=== PATIENT | male | born 1995 ===

== ENCOUNTER 2017-10-17 16:24 | Inpatient (IN) | payer MEDICAID ==
[2017-10-17 16:44] VITALS: BMI 59.7
--- NOTE | 2017-10-17 17:17 | ED PDOC ---
Arrival/HPI - General Chief Complaint: ENT Problem Time Seen by Provider: 10/17/17 17:14 Historian: Patient - History of Present Illness Narrative History of Present Illness (Text): 10/17/17 17:14 This 22 yo male presents to this ED c/o sore throat x 3 days. Patient stated he has difficulty swallowing due to pain. Patient stated his right pharynx is very swelling, and it is touching the other side of pharynx. Patient denies similar symptom in the past. Patient denies fever, cough, sob, skin rash, sick contact, dizziness, or weakness. Time/Duration: Other (see hpi) Context: Home Past Medical History - Provider Review Nursing Documentation Reviewed: Yes - Infectious Disease Hx of Infectious Diseases: None - Psychiatric Hx Substance Use: No Family/Social History - Physician Review Nursing Documentation Reviewed: Yes Family/Social History: Other (noncontributory) Smoking Status: Never Smoked Hx Alcohol Use: No Hx Substance Use: No Allergies/Home Meds Allergies/Adverse Reactions: Allergies No Known Allergies Allergy (Verified 10/17/17 16:43) Review of Systems - Review of Systems Constitutional: Normal. absent: Fatigue, Weight Change, Fevers Eyes: Normal ENT: Sore Throat Respiratory: Normal Cardiovascular: Normal Gastrointestinal: Normal Genitourinary Male: Normal Musculoskeletal: Normal Skin: Normal Neurological: Normal Endocrine: Normal Hemo/Lymphatic: Normal Psychiatric: Normal Physical Exam Vital Signs Temp Pulse Resp BP Pulse Ox 10/17/17 23:19 84 18 135/74 98 10/17/17 17:06 98.0 F 75 18 132/70 100 Temperature: Afebrile Blood Pressure: Normal Pulse: Regular Respiratory Rate: Normal Appearance: Positive for: Well-Appearing, Non-Toxic, Comfortable Pain Distress: None Mental Status: Positive for: Alert and Oriented X 3 - Systems Exam Head: Present: Atraumatic, Normocephalic Pupils: Present: PERRL Extroacular Muscles: Present: EOMI Conjunctiva: Present: Normal Mouth: Present: Moist Mucous Membranes Pharnyx: Present: ERYTHEMA, TONSILS ENLARGED, Peritonsilar Swelling (right peritonsilar swelling. Right pharynx is pushing uvula. Left pharynx is normal. No exudates). No: EXUDATE Neck: Present: Normal Range of Motion Respiratory/Chest: Present: Clear to Auscultation, Good Air Exchange. No: Respiratory Distress, Accessory Muscle Use Cardiovascular: Present: Regular Rate and Rhythm, Normal S1, S2. No: Murmurs Upper Extremity: Present: Normal Inspection, Normal ROM. No: Cyanosis, Edema Lower Extremity: Present: Normal Inspection, Normal ROM. No: Edema Neurological: Present: GCS=15, CN II-XII Intact, Speech Normal, Motor Func Grossly Intact, Normal Sensory Function, Normal Cerebellar Funct, Gait Normal, Memory Normal Skin: Present: Warm, Dry, Normal Color. No: Rashes Psychiatric: Present: Alert, Oriented x 3, Normal Insight, Normal Concentration Medical Decision Making ED Course and Treatment: 10/17/17 21:[address] Toro regarding patient continue with dysphagia due to tonsilitis. He is aware I spoke with ENT for consult. He agrees with plan for observatio 10/17/17 22:[address] Eaton regarding patient symptomatic tonsilitis. I reviewed ct scan result, and leukocytosis. He recommended Solumedrol 125 mg IVP , and IVF. He said he will see patient tomorrow morning. Re-evaluation Time: 22:04 Reassessment Condition: Re-examined, Improving,but remains with symptoms - Lab Interpretations Microbiology Results: Microbiology Results 10/17/17 19:25 Throat Group A Strep Throat Culture - Final NO BETA STREP GROUP A ISOLATED. Lab Results: 10/18/17 06:00 10/18/17 06:00 Lab Results 10/18/17 06:00: Sodium 143, Potassium 4.4, Chloride 103, Carbon Dioxide 25, Anion Gap 19, BUN 7, Creatinine 0.5 L, Est GFR ( Amer) > 60, Est GFR (Non -Af Amer) > 60, Random Glucose 129 H, Calcium 9.3, Phosphorus 4.2, Magnesium 2.2 , Total Bilirubin 0.6, AST 33, ALT 47, Alkaline Phosphatase 106, Total Protein 8.1, Albumin 4.1, Globulin 4.0, Albumin/Globulin Ratio 1.0 L 10/18/17 06:00: WBC 14.1 H, RBC 4.91, Hgb 14.1, Hct 43.3, MCV 88.2, MCH 28.7, MCHC 32.6, RDW 14.5, Plt Count 433, MPV 9.8, Gran % 90.5 H, Lymph % (Auto) 8.3 L , Baldwin % (Auto) 1.1, Eos % (Auto) 0.0 L, Baso % (Auto) 0.1, Gran # 12.78 H, Lymph # (Auto) 1.2, Baldwin # (Auto) 0.2, Eos # (Auto) 0.0, Baso # (Auto) 0.01, Neutrophils % (Manual) 92 H, Lymphocytes % (Manual) 7 L, Monocytes % (Manual) 1 , Platelet Evaluation Normal 10/17/17 22:30: EBV Capsid Ag IgG Ab 41.50 H, EBV Capsid Ag IgM Ab <36.00, EBV Nuclear Antigen Ab >600.00 H, EBV Interpretation See note 10/17/17 19:25: Grp A Beta Strep Ag Negative 10/17/17 18:05: Sodium 141, Potassium 4.5, Chloride 100, Carbon Dioxide 29, Anion Gap 17, BUN 7, Creatinine 0.7 L, Est GFR ( Amer) > 60, Est GFR (Non -Af Amer) > 60, Random Glucose 99, Calcium 9.3, Total Bilirubin 0.6, AST 34, ALT 44, Alkaline Phosphatase 100, Total Protein 8.2, Albumin 4.3, Globulin 3.9, Albumin/Globulin Ratio 1.1 10/17/17 18:05: WBC 15.3 H, RBC 4.85, Hgb 14.2, Hct 43.3, MCV 89.3, MCH 29.3, MCHC 32.8, RDW 14.7 H, Plt Count 384, MPV 9.6, Gran % 79.0 H, Lymph % (Auto) 12.6 L, Baldwin % (Auto) 7.0 H, Eos % (Auto) 1.1 L, Baso % (Auto) 0.3, Gran # 12.05 H, Lymph # (Auto) 1.9, Baldwin # (Auto) 1.1 H, Eos # (Auto) 0.2, Baso # (Auto ) 0.05 I have reviewed the lab results: Yes Interpretation: Abnormal lab values - RAD Interpretation Narrative RAD Interpretations (Text): 10/17/17 21:29 FINDINGS: Nasopharynx: There is swelling of the adenoids within the posterior nasopharynx. Oropharynx: There is significant swelling of the bilateral palatine tonsils , right side greater than left. There is associated significant narrowing of the airway at this level. Within the right palatine tonsil, there is an area of hypodensity measuring 1.2 x 1.1 cm, suggestive of phlegmonous change. Abscess is also considered, but there is no definitive wall enhancement. Hypopharynx: No acute abnormality. Larynx: Normal epiglottis. Trachea: No acute abnormality. Retropharyngeal space: No acute abnormality. Submandibular/parotid glands: The submandibular and parotid glands are symmetric in size. Thyroid: No enlarged or calcified nodules. Bones/joints: There is straightening of the lordotic curvature of the cervical spine. Artifact limits evaluation of the cervical spine. Soft tissues: There is minimal soft tissue swelling lateral to the right submandibular gland. Vasculature: Evaluation of the vasculature is significant limited by the absence of arterial phase enhancement. Lymph nodes: There is bilateral level I-III cervical lymphadenopathy. Scattered additional small cervical lymph nodes are identified. One of the larger right level II lymph nodes measures 2.8 x 2.2 cm. Sinuses: There is mucosal thickening of the bilateral maxillary sinuses, with mucous retention cysts or polyps. Lung apices: Unremarkable as visualized. IMPRESSION: 1. There is significant swelling of the bilateral palatine tonsils, right side greater than left. There is associated significant narrowing of the airway at this level. Within the right palatine tonsil, there is an area of hypodensity measuring 1.2 x 1.1 cm, suggestive of phlegmonous change. Abscess is also considered, but there is no definitive wall enhancement. 2. There is bilateral level I-III cervical lymphadenopathy. 3. There is minimal soft tissue swelling lateral to the right submandibular gland. 4. There is swelling of the adenoids within the posterior nasopharynx. 5. Paranasal sinus disease is noted above. Radiology Orders: 10/17/17 17:19 NECK SOFT TISSUE W/CONTRAST [CT] Stat - Medication Orders Current Medication Orders: Discontinued Medications Sodium Chloride (Sodium Chloride 0.9%) 1,000 mls @ 999 mls/hr IV .Q1H1M STA Stop: 10/17/17 18:20 Last Admin: 10/17/17 17:46 Dose: 999 mls/hr eMAR Start Stop Document 10/17/17 17:46 EQ (Rec: 10/17/17 17:46 EQ [id number]) Intravenous Solution Start Date 10/17/17 Start Time 17:46 Ampicillin Sodium/Sulbactam (Sodium 3 gm/ Sodium Chloride) 100 mls @ 100 mls/ hr IVPB STAT STA PRN Reason: Protocol Stop: 10/17/17 22:42 Last Admin: 10/17/17 22:12 Dose: 100 mls/hr eMAR Start Stop Document 10/17/17 22:12 JOL (Rec: 10/17/17 22:13 [place] [id number] Intravenous Solution Start Date 10/17/17 Start Time 22:13 End Date 10/17/17 End time 23:13 Total Infusion Time 60 Sodium Chloride (Sodium Chloride 0.9%) 1,000 mls @ 999 mls/hr IV .Q1H1M STA Stop: 10/17/17 22:54 Last Admin: 10/17/17 22:13 Dose: 999 mls/hr eMAR Start Stop Document 10/17/17 22:13 JOL (Rec: 10/17/17 22:13 JOL [email or web address] Intravenous Solution Start Date 10/17/17 Start Time 22:13 End Date 10/17/17 End time 23:13 Total Infusion Time 60 Ampicillin Sodium/Sulbactam (Sodium 3 gm/ Sodium Chloride) 100 mls @ 200 mls/ hr IVPB Q6 LIYAH PRN Reason: Protocol Last Admin: 10/20/17 12:56 Dose: 200 mls/hr eMAR Start Stop Document 10/20/17 12:56 MCV (Rec: 10/20/17 12:56 MCV [id number] Intravenous Solution Start Date 10/20/17 Start Time 12:56 Sodium Chloride (Sodium Chloride 0.9%) 1,000 mls @ 100 mls/hr IV .Q10H LIYAH Last Admin: 10/19/17 23:09 Dose: 100 mls/hr eMAR Start Stop Document 10/19/17 23:09 MB (Rec: 10/19/17 23:09 MB [id number] Intravenous Solution Start Date 10/19/17 Start Time 23:09 Methylprednisolone (Solu-Medrol) 125 mg IVP STAT STA Stop: 10/17/17 17:21 Last Admin: 10/17/17 19:36 Dose: 125 mg IVP Administration Document 10/17/17 19:36 EQ (Rec: 10/17/17 19:36 EQ [id number]) Charges for Administration # of IVP Administrations 1 Methylprednisolone (Solu-Medrol) 60 mg IVP Q8 [facility] Last Admin: 10/20/17 12:56 Dose: 60 mg IVP Administration Document 10/20/17 12:56 MCV (Rec: 10/20/17 12:57 MCV [id number]) Charges for Administration # of IVP Administrations 1 Pantoprazole Sodium (Protonix Inj) 40 mg IVP DAILY [facility] Last Admin: 10/20/17 09:34 Dose: 40 mg IVP Administration Document 10/20/17 09:34 MCV (Rec: 10/20/17 09:34 MCV [id number]) Charges for Administration # of IVP Administrations 1 Disposition/Present on Arrival - Present on Arrival Any Indicators Present on Arrival: No History of DVT/PE: No History of Uncontrolled Diabetes: No Urinary Catheter: No History of Decub. Ulcer: No History Surgical Site Infection Following: None - Disposition Have Diagnosis and Disposition been Completed?: Yes Diagnosis: Acute tonsillitis, Dysphagia Disposition: HOSPITALIZED Disposition Time: 22:04 Patient Plan: Admission Condition: GOOD
[2017-10-17] MEDS ORDERED: Sodium Chloride 0.9% 1,000 ML IV STA ×2 (17:20→21:54)
[2017-10-17 18:18] LABS: BASO # 0.05 K/mm3 (0.0-2.0); BASO % 0.3 % (0.0-3.0); EOS # 0.2 (0.0-0.7); EOS % 1.1 % (1.5-5.0); GRAN # 12.05 (1.4-6.5); HEMOGLOBIN 14.2 g/dL (14.0-18.0); LYMPH # 1.9 (1.2-3.4); LYMPH % 12.6 % (22.0-35.0); MEAN CELL VOLUME 89.3 fl (80.0-105.0); MEAN CORPUSCULAR HEMOGLOBIN 29.3 pg (25.0-35.0); MEAN CORPUSCULAR HGB CONC 32.8 g/dl (31.0-37.0); MEAN PLATELET VOLUME 9.6 fl (7.0-11.0); MONO # 1.1 (0.1-0.6); RBC 4.85 10^6/uL (3.5-6.1); RED CELL DISTRIBUTION WIDTH 14.7 % (11.5-14.5); WHITE BLOOD COUNT 15.3 10^3/ul (4.5-11.0)
[2017-10-17 18:19] LABS: ALB/GLOB RATIO 1.1 (1.1-1.8); ALBUMIN 4.3 g/dL (3.0-4.8); ALT/SGPT 44 U/L (7-56); AST/SGOT 34 U/L (17-59); BLOOD UREA NITROGEN 7 mg/dL (7-21); CALCIUM 9.3 mg/dL (8.4-10.5); GFR AFRICAN-AMERICAN > 60; GFR NON-AFRICAN AMERICAN > 60
[2017-10-17] MEDS ORDERED: Iohexol 350 MG/100 ML VIAL ONE (19:51)
--- NOTE | 2017-10-17 21:21 | CT ---
EXAM: CT Neck With Intravenous Contrast EXAM DATE/TIME: 10/17/2017 5:19 PM CLINICAL HISTORY: The patient age is 22 years old and is male; Signs and symptoms; Abscess, pharyngeal; Additional info: Sore throat with swelling R/O rigtonsilar abscess [facility] and description[facility]contrast TECHNIQUE: Axial computed tomography images of the neck with intravenous contrast. All CT scans at this facility use one or more dose reduction techniques, viz.: automated exposure control; ma/kV adjustment per patient size (including targeted exams where dose is matched to indication; i.e. head); or iterative reconstruction technique. CONTRAST: 100 mL of OMNI 350 administered intravenously. COMPARISON: No relevant prior studies available. FINDINGS: Nasopharynx: There is swelling of the adenoids within the posterior nasopharynx. Oropharynx: There is significant swelling of the bilateral palatine tonsils, right side greater than left. There is associated significant narrowing of the airway at this level. Within the right palatine tonsil, there is an area of hypodensity measuring 1.2 x 1.1 cm, suggestive of phlegmonous change. Abscess is also considered, but there is no definitive wall enhancement. Hypopharynx: No acute abnormality. Larynx: Normal epiglottis. Trachea: No acute abnormality. Retropharyngeal space: No acute abnormality. Submandibular/parotid glands: The submandibular and parotid glands are symmetric in size. Thyroid: No enlarged or calcified nodules. Bones/joints: There is straightening of the lordotic curvature of the cervical spine. Artifact limits evaluation of the cervical spine. Soft tissues: There is minimal soft tissue swelling lateral to the right submandibular gland. Vasculature: Evaluation of the vasculature is significant limited by the absence of arterial phase enhancement. Lymph nodes: There is bilateral level I-III cervical lymphadenopathy. Scattered additional small cervical lymph nodes are identified. One of the larger right level II lymph nodes measures 2.8 x 2.2 cm. Sinuses: There is mucosal thickening of the bilateral maxillary sinuses, with mucous retention cysts or polyps. Lung apices: Unremarkable as visualized. IMPRESSION: 1. There is significant swelling of the bilateral palatine tonsils, right side greater than left. There is associated significant narrowing of the airway at this level. Within the right palatine tonsil, there is an area of hypodensity measuring 1.2 x 1.1 cm, suggestive of phlegmonous change. Abscess is also considered, but there is no definitive wall enhancement. 2. There is bilateral level I-III cervical lymphadenopathy. 3. There is minimal soft tissue swelling lateral to the right submandibular gland. 4. There is swelling of the adenoids within the posterior nasopharynx. 5. Paranasal sinus disease is noted above.
--- NOTE | 2017-10-17 23:19 | CP.PCM.HP ---
<Stanislav Lal - Last Filed: 10/17/17 23:34> History of Present Illness - History of Present Illness History of Present Illness: PGY-1 H&P for Dr. Toro This is a 22 year old male with no PMHx who presents with complaint of throat swelling and dysphagia. Patient states that this started out as a sore throat last Monday. It has persisted over the week, and over the weekend, he started experiencing throat swelling. It is at the point where he can no longer handle oral intake, and this is what prompted him to seek medical evaluation. Patient denies any exacerbating or relieving factors. Patient denies any upper respiratory infection symptoms such as fever, chills, cough, rhinorrhea. Patient denies any sick contacts or recent travel. His only other complaint at this time is right sided ear pain without any decreased hearing or tinnitus. Patient states that he had a swallow evaluation where the fluid ended up coming out of his nose. Patient states that he is not short of breath nor does he feel a choking sensation. PMHx:denies PSHx: right knee surgery Allergies: NKDA Social: Denies tobacco, alcohol, drugs. Works in a [employer]. Family Hx: Denies PMD: Dr. Killian Home meds: denies Present on Admission - Present on Admission Any Indicators Present on Admission: No Review of Systems - Constitutional Constitutional: absent: Chills, Fever - EENT Eyes: absent: Change in Vision Ears: Ear Pain (right side). absent: Decreased Hearing, Tinnitus Nose/Mouth/Throat: Dysphagia, Sore Throat, Throat Swelling. absent: Nasal Congestion - Cardiovascular Cardiovascular: absent: Chest Pain - Respiratory Respiratory: absent: Dyspnea - Gastrointestinal Gastrointestinal: absent: Abdominal Pain, Nausea, Vomiting - Genitourinary Genitourinary: absent: Dysuria - Musculoskeletal Musculoskeletal: absent: Back Pain, Neck Pain - Integumentary Integumentary: absent: Rash - Neurological Neurological: absent: Dizziness, Weakness - Psychiatric Psychiatric: absent: Anxiety - Endocrine Endocrine: absent: Palpitations Past Patient History - Infectious Disease Hx of Infectious Diseases: None - Past Social History Smoking Status: Never Smoked - PSYCHIATRIC Hx Substance Use: No - SURGICAL HISTORY Hx Surgeries: No Meds Allergies/Adverse Reactions: Allergies Allergy/AdvReac Type Severity Reaction Status Date / Time No Known Allergies Allergy Verified 10/17/17 16:43 Physical Exam - Constitutional Appears: No Acute Distress - Head Exam Head Exam: ATRAUMATIC, NORMOCEPHALIC - Eye Exam Eye Exam: EOMI, PERRL - ENT Exam ENT Exam: Mucous Membranes Moist Additional comments: Erythematous tonsils Tonsillar swelling noted worse on the right Bilateral tympanic membranes with some scarring and dried blood - Respiratory Exam Respiratory Exam: Clear to Auscultation Bilateral, NORMAL BREATHING PATTERN. absent: Rales, Rhonchi, Wheezes - Cardiovascular Exam Cardiovascular Exam: REGULAR RHYTHM, +S1, +S2 - GI/Abdominal Exam GI & Abdominal Exam: Normal Bowel Sounds, Soft. absent: Guarding, Tenderness - Extremities Exam Extremities exam: Negative for: pedal edema - Neurological Exam Neurological exam: Alert, CN II-XII Intact, Oriented x3 - Psychiatric Exam Psychiatric exam: Normal Affect, Normal Mood - Skin Skin Exam: Dry, Intact, Normal Color, Warm Results - Vital Signs Recent Vital Signs: Last Vital Signs Temp 98.0 F 10/17/17 17:06 Pulse 75 10/17/17 17:06 Resp 18 10/17/17 17:06 BP 132/70 10/17/17 17:06 Pulse Ox 100 10/17/17 17:06 - Labs Result Diagrams: 10/17/17 18:05 10/17/17 18:05 Assessment & Plan - Assessment and Plan (Free Text) Assessment: This is a 22 year old male with no PMHx who presents with complaint of throat swelling and dysphagia. Plan: 1. Tonsillar swelling -Soft tissue neck CT shows significant swelling of the bilateral palatine tonsils, right> left, phlegmon, possible abscess -Given Unasyn and Solu-medrol in the ED -Continued Unasyn 3 gm Q6H -ENT consulted by the ED, he will evaluate patient in the AM -NPO -NS @100 cc/hr -swallow eval ordered 2. Prophylaxis -Protonix -SCDs Discussed with Dr. Muna Lal PGY-1 <Alexandra Toro - Last Filed: 10/18/17 06:39> Results - Vital Signs Recent Vital Signs: Last Vital Signs Temp 97.5 F L 10/18/17 06:00 Pulse 90 10/18/17 06:00 Resp 21 10/18/17 06:00 BP 116/61 10/18/17 06:00 Pulse Ox 95 10/18/17 06:00 - Labs Result Diagrams: 10/17/17 18:05 10/18/17 06:00 Labs: Laboratory Results - last 24 hr 10/18/17 06:00 Sodium 143 Potassium 4.4 Chloride 103 Carbon Dioxide 25 Anion Gap 19 BUN 7 Creatinine 0.5 L Est GFR ( Amer) > 60 Est GFR (Non-Af Amer) > 60 Random Glucose 129 H Calcium 9.3 Phosphorus 4.2 Magnesium 2.2 Total Bilirubin 0.6 AST 33 ALT 47 Alkaline Phosphatase 106 Total Protein 8.1 Albumin 4.1 Globulin 4.0 Albumin/Globulin Ratio 1.0 L Attending/Attestation - Attestation I have personally seen and examined this patient.: Yes I have fully participated in the care of the patient.: Yes I have reviewed all pertinent clinical information: Yes Notes (Text): 10/18/17 06:38 Patient was seen when he was in the CODE room in the ER. Agree with history, physical examination, assessment and plan.
[2017-10-17] MEDS: Sodium Chloride 0.9% 1,000 ML IV SCH (23:46)
[2017-10-18 06:37] LABS: BASO # 0.01 K/mm3 (0.0-2.0); BASO % 0.1 % (0.0-3.0); GRAN # 12.78 (1.4-6.5); GRAN % 90.5 % (50.0-68.0); HEMOGLOBIN 14.1 g/dL (14.0-18.0); LYMPH # 1.2 (1.2-3.4); LYMPH % 8.3 % (22.0-35.0); MEAN CELL VOLUME 88.2 fl (80.0-105.0); MEAN CORPUSCULAR HEMOGLOBIN 28.7 pg (25.0-35.0); MEAN CORPUSCULAR HGB CONC 32.6 g/dl (31.0-37.0); MEAN PLATELET VOLUME 9.8 fl (7.0-11.0); MONO # 0.2 (0.1-0.6); MONO % 1.1 % (1.0-6.0); PLATELET COUNT 433 10^3/uL (120.0-450.0); RBC 4.91 10^6/uL (3.5-6.1); RED CELL DISTRIBUTION WIDTH 14.5 % (11.5-14.5); WHITE BLOOD COUNT 14.1 10^3/ul (4.5-11.0)
[2017-10-18 06:38] LABS: ALBUMIN 4.1 g/dL (3.0-4.8); ALT/SGPT 47 U/L (7-56); AST/SGOT 33 U/L (17-59); BLOOD UREA NITROGEN 7 mg/dL (7-21); CALCIUM 9.3 mg/dL (8.4-10.5); GFR AFRICAN-AMERICAN > 60; GFR NON-AFRICAN AMERICAN > 60
[2017-10-18 08:02] LABS: LYMPHOCYTE 7 % (22.0-35.0); MONOCYTE 1 % (1.0-6.0); NEUTROPHIL 92 % (50.0-70.0)
[2017-10-18 08:03] LABS: PLATELET ESTIMATE NORMAL (NORMAL)
[2017-10-18] MEDS: Sodium Chloride 0.9% 1,000 ML IV SCH ×2 (09:45→12:30)
--- NOTE | 2017-10-18 11:32 | CP.PCM.PN ---
<Stan Viveros - Last Filed: 10/18/17 16:20> Subjective - Date & Time of Evaluation Date of Evaluation: 10/18/17 Time of Evaluation: 11:29 - Subjective Subjective: Patient seen and examined at bedside. Per nursing no acute events occurred overnight .Patient reports an improvement in swallowing since starting the medications. Patient denies any chest pain, shortness of breath, fevers, chills nausea, vomiting, abdominal pain or any other complaints. Objective - Vital Signs/Intake and Output Vital Signs (last 24 hours): Temp Pulse Resp BP Pulse Ox 97.5 F L 60 21 116/61 95 10/18/17 06:00 10/18/17 10:00 10/18/17 06:00 10/18/17 06:00 10/18/17 06:00 Intake and Output: 10/18/17 10/18/17 06:59 18:59 Intake Total 0 Balance 0 - Medications Medications: Current Medications Ampicillin Sodium/Sulbactam (Sodium 3 gm/ Sodium Chloride) 100 mls @ 200 mls/ hr IVPB Q6 LIYAH PRN Reason: Protocol Last Admin: 10/18/17 05:33 Dose: 200 mls/hr Sodium Chloride (Sodium Chloride 0.9%) 1,000 mls @ 100 mls/hr IV .Q10H [facility] Last Admin: 10/18/17 09:45 Dose: Not Given Methylprednisolone (Solu-Medrol) 60 mg IVP Q8 LIYAH Pantoprazole Sodium (Protonix Inj) 40 mg IVP DAILY [facility] Last Admin: 10/18/17 09:57 Dose: 40 mg - Labs Labs: 10/18/17 06:00 10/18/17 06:00 - Head Exam Head Exam: ATRAUMATIC, NORMAL INSPECTION, NORMOCEPHALIC - Eye Exam Eye Exam: EOMI, Normal appearance, PERRL Pupil Exam: NORMAL ACCOMODATION - ENT Exam ENT Exam: Mucous Membranes Moist - Respiratory Exam Respiratory Exam: Clear to Ausculation Bilateral, NORMAL BREATHING PATTERN. absent: Chest Wall Tenderness, Prolonged Expiratory Phase, Respiratory Distress - Cardiovascular Exam Cardiovascular Exam: REGULAR RHYTHM, +S1, +S2 - GI/Abdominal Exam GI & Abdominal Exam: Soft, Normal Bowel Sounds - Back Exam Back Exam: NORMAL INSPECTION - Neurological Exam Neurological Exam: Alert, Awake, CN II-XII Intact, Oriented x3 - Psychiatric Exam Psychiatric exam: Normal Affect, Normal Mood - Skin Skin Exam: Dry, Intact, Normal Color Assessment and Plan - Assessment and Plan (Free Text) Assessment: This is a 22 year old male with no PMHx who presents with complaint of throat swelling and dysphagia. Plan: 1. Tonsillar swelling -Soft tissue neck CT shows significant swelling of the bilateral palatine tonsils, right> left, phlegmon, possible abscess -Given Unasyn and Solu-medrol in the ED -Continue Unasyn 3 gm Q6H -Solu-medrol IVP 60mg Q8. -ENT consulted. Help appreciated. -NPO -NS @100 cc/hr -swallow eval ordered 2. Prophylaxis -Protonix -SCDs Discussed with Dr. Isidro Viveros PGY-1 <Shawnee Felix - Last Filed: 10/19/17 15:51> Objective - Vital Signs/Intake and Output Vital Signs (last 24 hours): Temp Pulse Resp BP Pulse Ox 98 F 72 20 142/82 94 L 10/19/17 14:00 10/19/17 14:00 10/19/17 14:00 10/19/17 14:00 10/19/17 14:00 Intake and Output: 10/19/17 10/19/17 06:59 18:59 Intake Total 0 240 Balance 0 240 - Medications Medications: Current Medications Ampicillin Sodium/Sulbactam (Sodium 3 gm/ Sodium Chloride) 100 mls @ 200 mls/ hr IVPB Q6 LIYAH PRN Reason: Protocol Last Admin: 10/19/17 12:03 Dose: 200 mls/hr Sodium Chloride (Sodium Chloride 0.9%) 1,000 mls @ 100 mls/hr IV .Q10H LIYAH Last Admin: 10/19/17 05:51 Dose: Not Given Methylprednisolone (Solu-Medrol) 60 mg IVP Q8 LIYAH Last Admin: 10/19/17 05:40 Dose: 60 mg Pantoprazole Sodium (Protonix Inj) 40 mg IVP DAILY [facility] Last Admin: 10/19/17 10:52 Dose: 40 mg - Labs Labs: 10/19/17 07:30 10/19/17 07:30 Attending/Attestation - Attestation I have personally seen and examined this patient.: Yes I have fully participated in the care of the patient.: Yes I have reviewed all pertinent clinical information, including history, physical exam and plan: Yes Notes (Text): 10/19/17 15:49 Attending note; Patient seen and examined with resident. Patient is a 22-year-old male admitted with dysphagia and severe tonsillar swelling. CT neck showed bilateral tonsillar swelling possible abscess. Continue IV Solu-Medrol and Unasyn. ENT evaluation requested. Nothing by mouth for now speech and swallow evaluation requested. Continue IV fluids. Strep a is negative. EBV pending. Upon discharge the patient will follow-up with PMD Dr. phillips. The patient needs close follow-up with ENT. 10/19/17 15:51
[2017-10-19] MEDS: Sodium Chloride 0.9% 1,000 ML IV SCH ×3 (01:37→23:09)
[2017-10-19 08:04] LABS: BASO # 0.02 K/mm3 (0.0-2.0); BASO % 0.1 % (0.0-3.0); GRAN # 11.98 (1.4-6.5); GRAN % 86.7 % (50.0-68.0); HEMOGLOBIN 14.1 g/dL (14.0-18.0); LYMPH # 1.4 (1.2-3.4); LYMPH % 9.8 % (22.0-35.0); MEAN CORPUSCULAR HEMOGLOBIN 28.8 pg (25.0-35.0); MEAN CORPUSCULAR HGB CONC 32.3 g/dl (31.0-37.0); MEAN PLATELET VOLUME 9.7 fl (7.0-11.0); MONO # 0.5 (0.1-0.6); MONO % 3.4 % (1.0-6.0); RBC 4.9 10^6/uL (3.5-6.1); RED CELL DISTRIBUTION WIDTH 14.6 % (11.5-14.5); WHITE BLOOD COUNT 13.8 10^3/ul (4.5-11.0)
[2017-10-19 08:15] LABS: BLOOD UREA NITROGEN 8 mg/dL (7-21); CALCIUM 9.3 mg/dL (8.4-10.5); GFR AFRICAN-AMERICAN > 60; GFR NON-AFRICAN AMERICAN > 60
--- NOTE | 2017-10-19 08:21 | CON ---
STORY OF PRESENT ILLNESS: This is a 22-year-old male with no significant past medical history +, history of sore throat, pain with over a week, complaint of sore throat, progressing to the point of discomfort and inability to swallow. Patient states that he is relieving factors. The patient denies any upper respiratory infections such as fever, chills or cough. His only complaint at this time is right-sided ear pain, throat pain. The patient states that he has had a swallow evaluation with fluid and will follow his notes. PAST MEDICAL HISTORY: Denied, morbid obesity. History of infectious disease. PAST SURGICAL HISTORY: Right knee surgery. ALLERGIES: NO KNOWN DRUG ALLERGIES. SOCIAL HISTORY: He denies tobacco or alcohol use. He never smoked and no psychological history. FAMILY HISTORY: Patient sitting at bedside with father who is a good historian. No prior admissions. REVIEW OF SYSTEMS: CONSTITUTIONAL: Absent chills, fever. ENT: Noted oropharyngeal swelling. No direct abscess noted. Significant swelling of the oral and hypopharyngeal areas. CARDIOVASCULAR: Absent. No chest pain. RESPIRATORY: Normal with no shortness of breath. GASTROINTESTINAL: Normal. Denies any diarrhea and/or constipation. GENITOURINARY: His urinating has increased as IV therapy continues. INTEGUMENT: Noted to be moist. NEUROLOGICAL: Absent. Noted weakness has improved. PHYSICAL EXAMINATION VITAL SIGNS: Pulse 75, respiratory rate 18, blood pressure 132/70. LABORATORY DATA: He has significant white count on admission of 15.3, H and H of 14.2 and 43.3. ASSESSMENT AND PLAN: This is a 22-year-old male with no past medical who presents with throat swelling and pain. CAT scan . Imaging, CT of the with IV contrast on 22-year-old male with finding of the nasopharynx, swelling of the adenoids within the posterior nasopharyngeal and significant swelling of bilateral palatine tonsil, right side greater than left. There is associated significant narrowing of the airway within the right palatine tonsils. The patient denies any shortness of breath at this time and is in upright position. There is an area of hypodensity of 1.2 x 1 suggestive of phlegmon change or abscess. At this point, swelling in bilateral palatine tonsils, right side greater than left associated asymmetry, significant narrowing of the airway was significantly improved but, there is no definitive wall enhancement, bilateral neck nodes or adenopathy seen on CAT scan as well on clinical exam pharyngitis without mono. Continued IV antibiotic and steroid coverage over the next 48 to 72 hours. For improved oral intake, the patient will be started on clear liquids and advanced as follow. No abscess noted for at this time. We will continue to follow. Alonso Hutchins DO STELLA
--- NOTE | 2017-10-19 12:08 | CP.PCM.PN ---
<Stan Viveros - Last Filed: 10/19/17 15:33> Subjective - Date & Time of Evaluation Date of Evaluation: 10/19/17 Time of Evaluation: 12:05 - Subjective Subjective: Patient seen and examined at bedside .Per nursing no acute events occurred overnight. Patient reports an improvement in swallowing and swelling in his throat. He is tolerating diet without any complaints. Patient denies any chest pain, fevers, chills, nausea, abdominal pain, or any other complaints. Objective - Vital Signs/Intake and Output Vital Signs (last 24 hours): Temp Pulse Resp BP Pulse Ox 97.3 F L 89 20 124/56 L 98 10/19/17 06:00 10/19/17 06:00 10/19/17 06:00 10/19/17 06:00 10/19/17 06:00 Intake and Output: 10/19/17 10/19/17 06:59 18:59 Intake Total 0 Balance 0 - Medications Medications: Current Medications Ampicillin Sodium/Sulbactam (Sodium 3 gm/ Sodium Chloride) 100 mls @ 200 mls/ hr IVPB Q6 [facility] PRN Reason: Protocol Last Admin: 10/19/17 05:34 Dose: 200 mls/hr Sodium Chloride (Sodium Chloride 0.9%) 1,000 mls @ 100 mls/hr IV .Q10H [facility] Last Admin: 10/19/17 05:51 Dose: Not Given Methylprednisolone (Solu-Medrol) 60 mg IVP Q8 [facility] Last Admin: 10/19/17 05:40 Dose: 60 mg Pantoprazole Sodium (Protonix Inj) 40 mg IVP DAILY [facility] Last Admin: 10/19/17 10:52 Dose: 40 mg - Labs Labs: 10/19/17 07:30 10/19/17 07:30 - Head Exam Head Exam: ATRAUMATIC, NORMAL INSPECTION, NORMOCEPHALIC - Eye Exam Eye Exam: EOMI, Normal appearance, PERRL Pupil Exam: NORMAL ACCOMODATION, PERRL. absent: Irregular, Unequal - ENT Exam ENT Exam: Mucous Membranes Moist, Normal Exam Additional comments: Tonsils swollen but improving. Right tonsils more swollen. No discharge appreciated. - Respiratory Exam Respiratory Exam: Clear to Ausculation Bilateral, NORMAL BREATHING PATTERN. absent: Chest Wall Tenderness, Prolonged Expiratory Phase, Respiratory Distress - Cardiovascular Exam Cardiovascular Exam: REGULAR RHYTHM, +S1, +S2 - GI/Abdominal Exam GI & Abdominal Exam: Soft, Normal Bowel Sounds. absent: Hyperactive Bowel Sounds - Extremities Exam Extremities Exam: Full ROM. absent: Joint Swelling, Pedal Edema, Tenderness - Back Exam Back Exam: NORMAL INSPECTION. absent: CVA tenderness (L), CVA tenderness (R), paraspinal tenderness - Neurological Exam Neurological Exam: Alert, Awake, CN II-XII Intact, Oriented x3 - Psychiatric Exam Psychiatric exam: Normal Affect, Normal Mood. absent: Anxious, Depressed, Flat Affect, Suicidal Ideation - Skin Skin Exam: Dry, Intact Assessment and Plan - Assessment and Plan (Free Text) Assessment: This is a 22 year old male with no PMHx who presents with complaint of throat swelling and dysphagia. Plan: 1. Tonsillar swelling -Soft tissue neck CT shows significant swelling of the bilateral palatine tonsils, right> left, phlegmon, possible abscess -Given Unasyn and Solu-medrol in the ED -Continue Unasyn 3 gm Q6H -Continue Solu-medrol IVP 60mg Q8. -ENT consulted. Help appreciated. -NS @100 cc/hr -Liquid diet being tolerated. Will advance as tolerated. -No surgical intervention at this time per ENT specialist. Will monitor 2. Prophylaxis -Protonix -SCDs Discussed with Dr. Felix Dispo: Patient expected to receive another 48 hours of IV antibiotics and Solu- medrol. Will re-evaluate at that time. Stan Viveros PGY-1 <Shawnee Felix - Last Filed: 10/19/17 15:53> Objective - Vital Signs/Intake and Output Vital Signs (last 24 hours): Temp Pulse Resp BP Pulse Ox 98 F 72 20 142/82 94 L 10/19/17 14:00 10/19/17 14:00 10/19/17 14:00 10/19/17 14:00 10/19/17 14:00 Intake and Output: 10/19/17 10/19/17 06:59 18:59 Intake Total 0 240 Balance 0 240 - Medications Medications: Current Medications Ampicillin Sodium/Sulbactam (Sodium 3 gm/ Sodium Chloride) 100 mls @ 200 mls/ hr IVPB Q6 [facility] PRN Reason: Protocol Last Admin: 10/19/17 12:03 Dose: 200 mls/hr Sodium Chloride (Sodium Chloride 0.9%) 1,000 mls @ 100 mls/hr IV .Q10H [facility] Last Admin: 10/19/17 05:51 Dose: Not Given Methylprednisolone (Solu-Medrol) 60 mg IVP Q8 [facility] Last Admin: 10/19/17 05:40 Dose: 60 mg Pantoprazole Sodium (Protonix Inj) 40 mg IVP DAILY [facility] Last Admin: 10/19/17 10:52 Dose: 40 mg - Labs Labs: 10/19/17 07:30 10/19/17 07:30 Attending/Attestation - Attestation I have personally seen and examined this patient.: Yes I have fully participated in the care of the patient.: Yes I have reviewed all pertinent clinical information, including history, physical exam and plan: Yes Notes (Text): 10/19/17 15:51 Attending note; Patient seen and examined with resident. Patient is a 22-year-old male admitted with dysphagia and severe tonsillar swelling. CT neck showed bilateral tonsillar swelling possible abscess. Continue IV Solu-Medrol and Unasyn. ENT evaluation appreciated. No abscess found. speech and swallow evaluation appreciated. Continue dysphagia diet. Continue IV fluids. Strep a is negative. EBV is positive. Continue steroids. Upon discharge the patient will follow-up with PMD Dr. phillips. The patient needs close follow-up with ENT.
[2017-10-20 07:08] LABS: BASO # 0.02 K/mm3 (0.0-2.0); BASO % 0.2 % (0.0-3.0); GRAN # 8.51 (1.4-6.5); GRAN % 81.2 % (50.0-68.0); HEMOGLOBIN 14.6 g/dL (14.0-18.0); LYMPH # 1.5 (1.2-3.4); LYMPH % 14.2 % (22.0-35.0); MEAN CELL VOLUME 88.9 fl (80.0-105.0); MEAN CORPUSCULAR HEMOGLOBIN 28.9 pg (25.0-35.0); MEAN CORPUSCULAR HGB CONC 32.5 g/dl (31.0-37.0); MEAN PLATELET VOLUME 9.7 fl (7.0-11.0); MONO # 0.5 (0.1-0.6); MONO % 4.4 % (1.0-6.0); RBC 5.05 10^6/uL (3.5-6.1); RED CELL DISTRIBUTION WIDTH 14.8 % (11.5-14.5); WHITE BLOOD COUNT 10.5 10^3/ul (4.5-11.0)
[2017-10-20 08:41] VITALS: BP 118/53; PULSE 60; RESP 20; TEMP 98.4; O2SAT 97
[2017-10-20] MEDS: Sodium Chloride 0.9% 1,000 ML IV SCH (09:34)
--- NOTE | 2017-10-20 12:19 | CP.PCM.DIS ---
<JackelineWarwick - Last Filed: 10/20/17 12:27> Provider - Provider Date of Admission: 10/18/17 15:30 Attending physician: Shawnee Felix MD Primary care physician: Kwasi Killian MD Time Spent in preparation of Discharge (in minutes): 45 Hospital Course - Lab Results Lab Results: Most Recent Lab Values WBC 10.5 10^3/ul (4.5-11.0) D 10/20/17 06:30 RBC 5.05 10^6/uL (3.5-6.1) 10/20/17 06:30 Hgb 14.6 g/dL (14.0-18.0) 10/20/17 06:30 Hct 44.9 % (42.0-52.0) 10/20/17 06:30 MCV 88.9 fl (80.0-105.0) 10/20/17 06:30 MCH 28.9 pg (25.0-35.0) 10/20/17 06:30 MCHC 32.5 g/dl (31.0-37.0) 10/20/17 06:30 RDW 14.8 % (11.5-14.5) H 10/20/17 06:30 Plt Count 425 10^3/uL (120.0-450.0) 10/20/17 06:30 MPV 9.7 fl (7.0-11.0) 10/20/17 06:30 Gran % 81.2 % (50.0-68.0) H 10/20/17 06:30 Lymph % (Auto) 14.2 % (22.0-35.0) L 10/20/17 06:30 Porter % (Auto) 4.4 % (1.0-6.0) 10/20/17 06:30 Eos % (Auto) 0.0 % (1.5-5.0) L 10/20/17 06:30 Baso % (Auto) 0.2 % (0.0-3.0) 10/20/17 06:30 Gran # 8.51 (1.4-6.5) H 10/20/17 06:30 Lymph # (Auto) 1.5 (1.2-3.4) 10/20/17 06:30 Porter # (Auto) 0.5 (0.1-0.6) 10/20/17 06:30 Eos # (Auto) 0.0 (0.0-0.7) 10/20/17 06:30 Baso # (Auto) 0.02 K/mm3 (0.0-2.0) 10/20/17 06:30 Neutrophils % (Manual) 92 % (50.0-70.0) H 10/18/17 06:00 Lymphocytes % (Manual) 7 % (22.0-35.0) L 10/18/17 06:00 Monocytes % (Manual) 1 % (1.0-6.0) 10/18/17 06:00 Platelet Evaluation Normal (NORMAL) 10/18/17 06:00 Sodium 144 mmol/L (132-148) 10/19/17 07:30 Potassium 4.5 mmol/L (3.6-5.0) 10/19/17 07:30 Chloride 102 mmol/L (98-107) 10/19/17 07:30 Carbon Dioxide 29 mmol/L (21-33) 10/19/17 07:30 Anion Gap 17 (10-20) 10/19/17 07:30 BUN 8 mg/dL (7-21) 10/19/17 07:30 Creatinine 0.6 mg/dl (0.8-1.5) L 10/19/17 07:30 Est GFR ( Amer) > 60 10/19/17 07:30 Est GFR (Non-Af Amer) > 60 10/19/17 07:30 Random Glucose 128 mg/dL (70-110) H 10/19/17 07:30 Calcium 9.3 mg/dL (8.4-10.5) 10/19/17 07:30 Phosphorus 4.2 mg/dL (2.5-4.5) 10/18/17 06:00 Magnesium 2.2 mg/dL (1.7-2.2) 10/18/17 06:00 Total Bilirubin 0.6 mg/dL (0.2-1.3) 10/18/17 06:00 AST 33 U/L (17-59) 10/18/17 06:00 ALT 47 U/L (7-56) 10/18/17 06:00 Alkaline Phosphatase 106 U/L (38-126) 10/18/17 06:00 Total Protein 8.1 g/dL (5.8-8.3) 10/18/17 06:00 Albumin 4.1 g/dL (3.0-4.8) 10/18/17 06:00 Globulin 4.0 gm/dL 10/18/17 06:00 Albumin/Globulin Ratio 1.0 (1.1-1.8) L 10/18/17 06:00 EBV Capsid Ag IgG Ab 41.50 U/mL H 10/17/17 22:30 EBV Capsid Ag IgM Ab <36.00 U/mL 10/17/17 22:30 EBV Nuclear Antigen Ab >600.00 U/mL H 10/17/17 22:30 EBV Interpretation See note 10/17/17:30 Grp A Beta Strep Ag Negative (NEGATIVE) 10/17/17 19:25 - Hospital Course Hospital Course: This is a 22 year old male with no PMHx who presents with complaint of throat swelling and dysphagia. Patient states that this started out as a sore throat last Monday. It has persisted over the week, and over the weekend, he started experiencing throat swelling. It is at the point where he can no longer handle oral intake, and this is what prompted him to seek medical evaluation. Patient denies any exacerbating or relieving factors. Patient denies any upper respiratory infection symptoms such as fever, chills, cough, rhinorrhea. Patient denies any sick contacts or recent travel. His only other complaint at this time is right sided ear pain without any decreased hearing or tinnitus. Patient states that he had a swallow evaluation where the fluid ended up coming out of his nose. Patient states that he is not short of breath nor does he feel a choking sensation. PMHx:denies PSHx: right knee surgery Allergies: NKDA Social: Denies tobacco, alcohol, drugs. Works in a [employer] company. Family Hx: Denies PMD: Dr. Killian Home meds: denemilie Hospital Course: Patient was seen and examined at bedside. Patient was started on Unasyn while admitted to the hospital. The following day they were started on IV steroids and seen by ENT. It was determined no surgical intervention would occur and the patient would be monitored and diet advanced as tolerated. The patient was tolerating liquid diet and was advanced to soft diet. Patient was seen and determined stable enough for discharge with the following instructions. Imagin. Neck soft tissue w/ contrast CT: Significatn swelling of bilateral palatine sonsilt, right side greater than left. There is an significant narrowing of the airway at this level. Whithin the right palantine tonsil, there is an area of hypodensity measuring 1.2x1.1cm , suggestive of phlegmonous change. Abscess is also considered, but there is no definitive wall enhancement. Bilateral level I-III cervical lymphandenopaty. Minimal soft tissue swelling lateral to the right submandibular gland. Swelling of adenoids within the posterior nasopharynx, Paranasal sinus disease. Discharge Instructions:1. Follow up with PMD within one week of discharge. 2. Continue soft food diet as in hospital. 3. Follow up with Dr. Hutchins within one week of discharge for possible tonsillectomy. 4. Return to hospital for any new or worsening symptoms. Discharge Exam - Head Exam Head Exam: ATRAUMATIC, NORMAL INSPECTION, NORMOCEPHALIC - Eye Exam Eye Exam: EOMI, Normal appearance, PERRL Pupil Exam: NORMAL ACCOMODATION, PERRL - ENT Exam ENT Exam: Mucous Membranes Moist Additional comments: Improving tonsil swelling r>l - Respiratory Exam Respiratory Exam: Clear to PA & Lateral, NORMAL BREATHING PATTERN, UNREMARKABLE. absent: Rhonchi - Cardiovascular Exam Cardiovascular Exam: +S1, +S2 - GI/Abdominal Exam GI & Abdominal Exam: Normal Bowel Sounds, Unremarkable - Neurological Exam Neurological exam: Alert, CN II-XII Intact, Normal Gait, Oriented x3 - Psychiatric Exam Psychiatric exam: Normal Affect, Normal Mood - Skin Skin Exam: Dry, Intact Discharge Plan - Discharge Medications Prescriptions: Amoxicillin/Potassium Clav [Augmentin 500 mg-125 mg] 1 tab PO BID #20 tab Famotidine [Pepcid] 40 mg PO DAILY #14 tab Methylprednisolone [Medrol Dose Pack (21 tabs)] See Taper PO DAILY #21 mg - Follow Up Plan Condition: GOOD Disposition: HOME/ ROUTINE Instructions: Obesity, Adult, Sore Throat, Adult (DC), Health Risks of Obesity , Pureed Diet Additional Instructions: 1. Follow up with PMD within one week of discharge. 2. Continue soft food diet as in hospital. 3. Follow up with Dr. Hutchins within one week of discharge for possible tonsillectomy. 4. Return to hospital for any new or worsening symptoms. Referrals: Kwasi Killian MD [Primary Care Provider] - Alonso Hutchins DO [Staff Provider] - <Shawnee Felix - Last Filed: 10/20/17 18:53> Provider - Provider Date of Admission: 10/18/17 15:30 Attending physician: Shawnee Felix MD Primary care physician: Kwasi Killian MD Hospital Course - Lab Results Lab Results: Most Recent Lab Values WBC 10.5 10^3/ul (4.5-11.0) D 10/20/17 06:30 RBC 5.05 10^6/uL (3.5-6.1) 10/20/17 06:30 Hgb 14.6 g/dL (14.0-18.0) 10/20/17 06:30 Hct 44.9 % (42.0-52.0) 10/20/17 06:30 MCV 88.9 fl (80.0-105.0) 10/20/17 06:30 MCH 28.9 pg (25.0-35.0) 10/20/17 06:30 MCHC 32.5 g/dl (31.0-37.0) 10/20/17 06:30 RDW 14.8 % (11.5-14.5) H 10/20/17 06:30 Plt Count 425 10^3/uL (120.0-450.0) 10/20/17 06:30 MPV 9.7 fl (7.0-11.0) 10/20/17 06:30 Gran % 81.2 % (50.0-68.0) H 10/20/17 06:30 Lymph % (Auto) 14.2 % (22.0-35.0) L 10/20/17 06:30 Porter % (Auto) 4.4 % (1.0-6.0) 10/20/17 06:30 Eos % (Auto) 0.0 % (1.5-5.0) L 10/20/17 06:30 Baso % (Auto) 0.2 % (0.0-3.0) 10/20/17 06:30 Gran # 8.51 (1.4-6.5) H 10/20/17 06:30 Lymph # (Auto) 1.5 (1.2-3.4) 10/20/17 06:30 Porter # (Auto) 0.5 (0.1-0.6) 10/20/17 06:30 Eos # (Auto) 0.0 (0.0-0.7) 10/20/17 06:30 Baso # (Auto) 0.02 K/mm3 (0.0-2.0) 10/20/17 06:30 Neutrophils % (Manual) 92 % (50.0-70.0) H 10/18/17 06:00 Lymphocytes % (Manual) 7 % (22.0-35.0) L 10/18/17 06:00 Monocytes % (Manual) 1 % (1.0-6.0) 10/18/17 06:00 Platelet Evaluation Normal (NORMAL) 10/18/17 06:00 Sodium 144 mmol/L (132-148) 10/19/17 07:30 Potassium 4.5 mmol/L (3.6-5.0) 10/19/17 07:30 Chloride 102 mmol/L (98-107) 10/19/17 07:30 Carbon Dioxide 29 mmol/L (21-33) 10/19/17 07:30 Anion Gap 17 (10-20) 10/19/17 07:30 BUN 8 mg/dL (7-21) 10/19/17 07:30 Creatinine 0.6 mg/dl (0.8-1.5) L 10/19/17 07:30 Est GFR ( Amer) > 60 10/19/17 07:30 Est GFR (Non-Af Amer) > 60 10/19/17 07:30 Random Glucose 128 mg/dL (70-110) H 10/19/17 07:30 Calcium 9.3 mg/dL (8.4-10.5) 10/19/17 07:30 Phosphorus 4.2 mg/dL (2.5-4.5) 10/18/17 06:00 Magnesium 2.2 mg/dL (1.7-2.2) 10/18/17 06:00 Total Bilirubin 0.6 mg/dL (0.2-1.3) 10/18/17 06:00 AST 33 U/L (17-59) 10/18/17 06:00 ALT 47 U/L (7-56) 10/18/17 06:00 Alkaline Phosphatase 106 U/L (38-126) 10/18/17 06:00 Total Protein 8.1 g/dL (5.8-8.3) 10/18/17 06:00 Albumin 4.1 g/dL (3.0-4.8) 10/18/17 06:00 Globulin 4.0 gm/dL 10/18/17 06:00 Albumin/Globulin Ratio 1.0 (1.1-1.8) L 10/18/17 06:00 EBV Capsid Ag IgG Ab 41.50 U/mL H 10/17/17 22:30 EBV Capsid Ag IgM Ab <36.00 U/mL 10/17/17 22:30 EBV Nuclear Antigen Ab >600.00 U/mL H 10/17/17 22:30 EBV Interpretation See note 10/17/17 22:30 Grp A Beta Strep Ag Negative (NEGATIVE) 10/17/17 19:25 Attending/Attestation - Attestation I have personally seen and examined this patient.: Yes I have fully participated in the care of the patient.: Yes I have reviewed all pertinent clinical information, including history, physical exam and plan: Yes Notes (Text): 10/20/17 18:51 Attending note; Patient seen and examined with resident. Patient is a 22-year-old male admitted with dysphagia and severe tonsillar swelling. CT neck showed bilateral tonsillar swelling possible abscess. Treated with IV Solu-Medrol and Unasyn. ENT evaluation appreciated. No abscess found. speech and swallow evaluation appreciated. Continue dysphagia diet. Strep a is negative. EBV is positive. Continue steroids. Patient will be discharged home with Medrol Dosepak and by mouth Augmentin. Advised to follow-up with ENT in one week. Patient may need outpatient tonsillectomy/adenoidectomy. Upon discharge the patient will follow-up with PMD Dr. killian. Diagnosis; Acute tonsillitis Dysphagia
== END 2017-10-20 14:52 | disposition home or self-care (01) | DRG 69 ==
LOC: ED 16:24 → ERH 21:57 → 2RNO 23:14 → OBSVTOIN 10-18 15:30 → 5RSO 10-19 10:05
PROVIDERS: ADMIT Internal Medicine; ATTEND Internal Medicine
DX: J03.90 Acute tonsillitis, unspecified (principal); R13.10 Dysphagia, unspecified; H92.01 Otalgia, right ear

== ENCOUNTER 2017-11-03 07:53 | Emergency (ER) | payer MEDICAID ==
[2017-11-03 07:58] VITALS: BMI 57.2
[2017-11-03 08:04] VITALS: TEMP 98.1
[2017-11-03] MEDS ORDERED: Sodium Chloride 0.9% 1,000 ML IV STA (08:11)
--- NOTE | 2017-11-03 08:13 | ED PDOC ---
Arrival/HPI - General Chief Complaint: ENT Problem Time Seen by Provider: 11/03/17 07:58 Historian: Patient - History of Present Illness Narrative History of Present Illness (Text): 11/03/17 08:10 22 year old male, with no significant past medical history, presents to the emergency department complaining of swollen tonsils, with associated ear pain. Patient was seen in the emergency department for similar symptoms 2 weeks ago and was given antibiotics and steroids. Patient finished medications last week. Symptom Onset: Sudden Symptom Course: Unchanged Activities at Onset: Light Context: Home Past Medical History - Provider Review Nursing Documentation Reviewed: Yes - Infectious Disease Hx of Infectious Diseases: None - Cardiac Hx Cardiac Disorders: No - Pulmonary Hx Respiratory Disorders: No - Neurological Hx Neurological Disorder: No - HEENT Hx HEENT Disorder: No - Renal Hx Renal Disorder: No - Endocrine/Metabolic Hx Endocrine Disorders: No - Hematological/Oncological Hx Blood Disorders: No - Integumentary Hx Dermatological Disorder: No - Musculoskeletal/Rheumatological Hx Musculoskeletal Disorders: No Hx Falls: No - Gastrointestinal Hx Gastrointestinal Disorders: No - Genitourinary/Gynecological Hx Genitourinary Disorders: No - Psychiatric Hx Psychophysiologic Disorder: No Hx Substance Use: No Family/Social History - Physician Review Nursing Documentation Reviewed: Yes Family/Social History: Unknown Family HX Smoking Status: Never Smoked Hx Alcohol Use: No Hx Substance Use: No Allergies/Home Meds Allergies/Adverse Reactions: Allergies No Known Allergies Allergy (Verified 10/17/17 16:43) Review of Systems - Physician Review All systems were reviewed & negative as marked: Yes - Review of Systems Constitutional: Normal Eyes: Normal ENT: Other (Tonsilitis, ear pain) Respiratory: Normal. absent: SOB, Cough Cardiovascular: Normal. absent: Chest Pain Gastrointestinal: Normal. absent: Abdominal Pain, Diarrhea, Nausea, Vomiting Genitourinary Male: Normal Musculoskeletal: Normal. absent: Back Pain, Neck Pain Skin: Normal. absent: Rash Neurological: Normal. absent: Headache, Dizziness Endocrine: Normal Hemo/Lymphatic: Normal Psychiatric: Normal Physical Exam Vital Signs Reviewed: Yes Vital Signs Temp Pulse Resp BP Pulse Ox 11/03/17 09:41 83 16 144/63 98 11/03/17 08:01 98.1 F 88 15 144/39 L 96 Temperature: Afebrile Blood Pressure: Hypotensive Pulse: Regular Respiratory Rate: Normal Appearance: Positive for: Well-Appearing, Non-Toxic, Comfortable Pain Distress: None Mental Status: Positive for: Alert and Oriented X 3 - Systems Exam Head: Present: Atraumatic, Normocephalic Pupils: Present: PERRL Extroacular Muscles: Present: EOMI Conjunctiva: Present: Normal Mouth: Present: Moist Mucous Membranes Pharnyx: Present: Peritonsilar Swelling (rigth peritonsilar region swelling) Neck: Present: Normal Range of Motion. No: Meningeal Signs, MIDLINE TENDERNESS , Paraspinal Tenderness Respiratory/Chest: Present: Clear to Auscultation, Good Air Exchange. No: Respiratory Distress, Accessory Muscle Use Cardiovascular: Present: Regular Rate and Rhythm, Normal S1, S2. No: Murmurs Abdomen: No: Tenderness, Distention, Peritoneal Signs Back: Present: Normal Inspection Upper Extremity: Present: Normal Inspection. No: Cyanosis, Edema Lower Extremity: Present: Normal Inspection. No: Edema, CALF TENDERNESS Neurological: Present: GCS=15, CN II-XII Intact, Speech Normal Skin: Present: Warm, Dry, Normal Color. No: Rashes Psychiatric: Present: Alert, Oriented x 3, Normal Insight, Normal Concentration Medical Decision Making ED Course and Treatment: 11/03/17 08:15 Impression: 22 year old male presents to the emergency department complaining of swollen tonsils, with associated ear pain. Plan: -- Labs -- Decadron -- Sodium Chloride -- Rapid Strep -- Reassess and disposition Prior Visits: Notes and results from previous visits were reviewed. Patient was last seen in the emergency department on 10/20/17 for sore throat and dysphalgia. Patietn was d/c with Medrol Dosepak and Augmentin. Progress Notes: 11/03/17 08:[address] Jaime, who is aware and agrees with plan. Will see pt in his office right now. 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 case discsussed with ent. advises to send to office for i and d. states ok to not obtain ct scan as pt with recent ct scan. pt otherwises speaking full sentences in nad. airway patent. - Lab Interpretations Lab Results: 11/03/17 08:15 11/03/17 08:15 Lab Results 11/03/17 08:15: Sodium 146, Potassium 4.5, Chloride 102, Carbon Dioxide 32, Anion Gap 17, BUN 8, Creatinine 0.6 L, Est GFR ( Amer) > 60, Est GFR (Non -Af Amer) > 60, Random Glucose 106, Calcium 9.2, Total Bilirubin 0.7, AST 36, ALT 39, Alkaline Phosphatase 124, Total Protein 7.6, Albumin 4.1, Globulin 3.5, Albumin/Globulin Ratio 1.2 11/03/17 08:15: PT 12.0, INR 1.04, APTT 35.1 11/03/17 08:15: WBC 15.0 H D, RBC 4.73, Hgb 13.8 L, Hct 42.3, MCV 89.4, MCH 29.2 , MCHC 32.6, RDW 16.0 H, Plt Count 308, MPV 9.7, Gran % 82.0 H, Lymph % (Auto) 9.1 L, [place] % (Auto) 7.6 H, Eos % (Auto) 1.1 L, Baso % (Auto) 0.2, Gran # 12.32 H, Lymph # (Auto) 1.4, [place] # (Auto) 1.1 H, Eos # (Auto) 0.2, Baso # (Auto) 0.03 11/03/17 08:11: Grp A Beta Strep Ag Negative - Medication Orders Current Medication Orders: Discontinued Medications Dexamethasone (Decadron) 10 mg PO STAT STA Stop: 11/03/17 08:11 Last Admin: 11/03/17 08:24 Dose: 10 mg Sodium Chloride (Sodium Chloride 0.9%) 1,000 mls @ 999 mls/hr IV .Q1H1M STA Stop: 11/03/17 09:11 Last Admin: 11/03/17 08:24 Dose: 999 mls/hr eMAR Start Stop Document 11/03/17 08:24 CNR (Rec: 11/03/17 08:24 CNR [id number]) Intravenous Solution Start Date 11/03/17 Start Time 08:24 Clindamycin Phosphate 600 mg/ (Sodium Chloride) 54 mls @ 108 mls/hr IVPB STAT STA PRN Reason: Protocol Stop: 11/03/17 09:11 Last Admin: 11/03/17 09:02 Dose: 108 mls/hr eMAR Start Stop Document 11/03/17 09:02 CNR (Rec: 11/03/17 09:03 CNR [id number]) Intravenous Solution Start Date 11/03/17 Start Time 09:02 End Date 11/03/17 End time 09:32 Total Infusion Time 30 - Scribe Statement The provider has reviewed the documentation as recorded by the Scribe Danielle Isidro All medical record entries made by the Scribe were at my direction and personally dictated by me. I have reviewed the chart and agree that the record accurately reflects my personal performance of the history, physical exam, medical decision making, and the department course for this patient. I have also personally directed, reviewed, and agree with the discharge instructions and disposition. Disposition/Present on Arrival - Present on Arrival Any Indicators Present on Arrival: No History of DVT/PE: No History of Uncontrolled Diabetes: No Urinary Catheter: No History of Decub. Ulcer: No History Surgical Site Infection Following: None - Disposition Have Diagnosis and Disposition been Completed?: Yes Diagnosis: Peritonsillar abscess Disposition: HOME/ ROUTINE Disposition Time: 09:00 Condition: STABLE Discharge Instructions (ExitCare): Sore Throat in Adults, Peritonsillar Abscess , Adult Additional Instructions: please follow up with ENT at this time. they are expecting to see you today Prescriptions: Clindamycin [Cleocin] 300 mg PO Q8 #21 cap Referrals: [employer] [facility] [Outside] - Follow up with primary [facility] [place] [Outside] - Follow up with primary Kwasi Killian MD [Primary Care Provider] - Follow up with primary Efrain Valentin DO [Staff Provider] - Follow up with primary Forms: [employer] ([place])
[2017-11-03 08:32] LABS: BASO # 0.03 K/mm3 (0.0-2.0); BASO % 0.2 % (0.0-3.0); EOS # 0.2 (0.0-0.7); EOS % 1.1 % (1.5-5.0); GRAN # 12.32 (1.4-6.5); HEMOGLOBIN 13.8 g/dL (14.0-18.0); LYMPH # 1.4 (1.2-3.4); LYMPH % 9.1 % (22.0-35.0); MEAN CELL VOLUME 89.4 fl (80.0-105.0); MEAN CORPUSCULAR HEMOGLOBIN 29.2 pg (25.0-35.0); MEAN CORPUSCULAR HGB CONC 32.6 g/dl (31.0-37.0); MEAN PLATELET VOLUME 9.7 fl (7.0-11.0); MONO # 1.1 (0.1-0.6); MONO % 7.6 % (1.0-6.0); RBC 4.73 10^6/uL (3.5-6.1)
[2017-11-03 08:42] LABS: INR 1.04 (0.93-1.08); PARTIAL THROMBOPLASTIN TIME 35.1 Seconds (25.1-36.5)
[2017-11-03 08:43] LABS: ALB/GLOB RATIO 1.2 (1.1-1.8); ALBUMIN 4.1 g/dL (3.0-4.8); ALT/SGPT 39 U/L (7-56); AST/SGOT 36 U/L (17-59); BLOOD UREA NITROGEN 8 mg/dL (7-21); CALCIUM 9.2 mg/dL (8.4-10.5); GFR AFRICAN-AMERICAN > 60; GFR NON-AFRICAN AMERICAN > 60
[2017-11-03 09:42] VITALS: BP 144/63; PULSE 83; RESP 16; O2SAT 98
== END 2017-11-03 09:42 | disposition home or self-care (01) ==
LOC: ED 07:53
DX: J36 Peritonsillar abscess (principal)
CPT/HCPCS: 80053; 85025; 85610; 85730; 87070; 87430; 96365; 99283; J7030; J8540